=== PATIENT | female | born 1985 | race Caucasian/White ===

== ENCOUNTER 2019-06-09 09:42 | Outpatient (CLI) | payer MEDICAID ==
[2019-06-09 14:28] LABS: APPEARANCE,URINE SLIGHTLY-CLOUDY; BILIRUBIN,URINE NEGATIVE (NEGATIVE); COLOR,URINE YELLOW; GLUCOSE, URINE NEGATIVE (NEGATIVE); KETONES,URINE NEGATIVE (NEGATIVE); LEUKOCYTE ESTERASE,URINE SMALL (NEGATIVE); NITRITE,URINE NEGATIVE (NEGATIVE); PROTEIN,URINE NEGATIVE (NEGATIVE); UROBILINOGEN,URINE NEGATIVE mg/dL (<2.0)
[2019-06-09 14:44] LABS: URINE AMPHETAMINES SCREEN NEGATIVE; URINE BARBITURATES SCREEN NEGATIVE; URINE BENZODIAZEPINES SCREEN NEGATIVE; URINE COCAINE SCREEN NEGATIVE; URINE MARIJUANA (THC) SCREEN NEGATIVE; URINE METHADONE SCREEN NEGATIVE; URINE PHENCYCLIDINE SCREEN NEGATIVE
== END 2019-06-09 12:16 | disposition home or self-care (01) ==
LOC: LC 09:42
PROVIDERS: ATTEND Obstetrics & Gynecology
PROC: 4A1HXCZ Monitoring of Products of Conception, Cardiac Rate, External Approach (ICD-10-PCS; principal; 2019-06-09)
DX: O46.93 Antepartum hemorrhage, unspecified, third trimester (principal); Z3A.38 38 weeks gestation of pregnancy
CPT/HCPCS: 59025; 80307; 81005

== ENCOUNTER 2019-06-17 21:53 | Outpatient (CLI) | payer MEDICAID ==
[2019-06-17 22:35] LABS: APPEARANCE,URINE CLEAR; BILIRUBIN,URINE NEGATIVE (NEGATIVE); COLOR,URINE STRAW; GLUCOSE, URINE NEGATIVE (NEGATIVE); KETONES,URINE NEGATIVE (NEGATIVE); LEUKOCYTE ESTERASE,URINE TRACE (NEGATIVE); NITRITE,URINE NEGATIVE (NEGATIVE); PROTEIN,URINE NEGATIVE (NEGATIVE); URINE SPECIFIC GRAVITY 1.006; UROBILINOGEN,URINE NEGATIVE mg/dL (<2.0)
[2019-06-17 22:56] LABS: URINE AMPHETAMINES SCREEN NEGATIVE; URINE BARBITURATES SCREEN NEGATIVE; URINE BENZODIAZEPINES SCREEN NEGATIVE; URINE COCAINE SCREEN NEGATIVE; URINE MARIJUANA (THC) SCREEN NEGATIVE; URINE METHADONE SCREEN NEGATIVE; URINE PHENCYCLIDINE SCREEN NEGATIVE
--- NOTE | 2019-06-17 23:34 | Non Stress Test Report ---
Non Stress Test Datetime Report Generated by CPN: 06/17/2019 23:33 DEMOGRAPHIC Test Number: 2 EGA NST: 39.1 INDICATION Indication for Study (NST) Other: lc Indication for Study (NST) Other: LC IUP @ 38 VITAL SIGNS Temperature - NST: 97.9 Pulse - NST: 67 RESP - NST: 14 NBPSYS NST: 120 NBPDIA NST: 72 URINE RESULTS Urine Protein, NST: Negative Urine Ketones - NST: Negative Urine Glucose - NST: Negative Urine Blood - NST: Negative MONITORING Monitor Explained: Monitor Explained; Test Explained; Patient Verbalized Understanding Monitor Explained: Monitor Explained; Test Explained; Patient Verbalized Understanding Time on Monitor: 06/17/2019 22:14 Time on Monitor: 06/09/2019 10:42 Time off Monitor: 06/17/2019 23:13 Time off Monitor: 06/09/2019 11:02 NST Duration: 59 NST Duration: 20 NST INTERVENTIONS NST Interventions: None NST Interventions: PO Hydration; Reposition Patient Physician Notified NST: Dr. Rosado Physician Notified NST: PJones,CNM BABY A: [id number] BABY A Movement : Present Movement : Present Contraction Frequency : rare Contraction Frequency : None FHR Baseline : 135 FHR Baseline : 145 Accelerations : 15X15 Accelerations : 15X15 Decelerations : None Decelerations : None Variability : Moderate 6-25bpm Variability : Moderate 6-25bpm NST Review: Meets Criteria for Reactive NST NST Review: Meets Criteria for Reactive NST NST Review and Verified By : SIMONE Siddiqui Results: Reactive NST Results: Reactive NST REPORT Report Trigger: Send Report
== END 2019-06-17 23:34 | disposition home or self-care (01) ==
LOC: LC 21:53
PROVIDERS: ATTEND Obstetrics & Gynecology
PROC: 4A1HXCZ Monitoring of Products of Conception, Cardiac Rate, External Approach (ICD-10-PCS; principal; 2019-06-17)
DX: O47.1 False labor at or after 37 completed weeks of gestation (principal); Z3A.39 39 weeks gestation of pregnancy
CPT/HCPCS: 59025; 80307; 81005

== ENCOUNTER 2019-06-24 21:05 | Outpatient (CLI) | payer MEDICAID ==
[2019-06-24 21:40] LABS: APPEARANCE,URINE CLEAR; BILIRUBIN,URINE NEGATIVE (NEGATIVE); COLOR,URINE YELLOW; GLUCOSE, URINE NEGATIVE (NEGATIVE); KETONES,URINE NEGATIVE (NEGATIVE); LEUKOCYTE ESTERASE,URINE NEGATIVE (NEGATIVE); NITRITE,URINE NEGATIVE (NEGATIVE); PROTEIN,URINE NEGATIVE (NEGATIVE); URINE SPECIFIC GRAVITY 1.011; UROBILINOGEN,URINE NEGATIVE mg/dL (<2.0)
[2019-06-24 21:54] LABS: URINE AMPHETAMINES SCREEN NEGATIVE; URINE BARBITURATES SCREEN NEGATIVE; URINE BENZODIAZEPINES SCREEN NEGATIVE; URINE COCAINE SCREEN NEGATIVE; URINE MARIJUANA (THC) SCREEN NEGATIVE; URINE METHADONE SCREEN NEGATIVE; URINE PHENCYCLIDINE SCREEN NEGATIVE
--- NOTE | 2019-06-25 03:34 | Non Stress Test Report ---
Non Stress Test Datetime Report Generated by CPN: 06/25/2019 03:34 DEMOGRAPHIC Test Number: 3 EGA NST: 40.1 INDICATION Indication for Study (NST) Other: lc URINE RESULTS Urine Protein, NST: Positive MONITORING Monitor Explained: Monitor Explained; Test Explained; Patient Verbalized Understanding Time on Monitor: 06/24/2019 21:28 Time off Monitor: 06/24/2019 23:15 NST Duration: 107 NST INTERVENTIONS NST Interventions: None; Reposition Patient; Vibroacoustic Stim Physician Notified NST: dr vaughn BABY A: [id number] BABY A Movement : Present Contraction Frequency : 2-6 FHR Baseline : 140 Accelerations : 15X15 Variability : Moderate 6-25bpm NST Review: Meets Criteria for Reactive NST NST Review and Verified By : Amanda Wilson RN NST Results: Reactive NST REPORT Report Trigger: Send Report
== END 2019-06-24 23:45 | disposition home or self-care (01) ==
LOC: LC 21:05
PROVIDERS: ATTEND Obstetrics & Gynecology Gynecology
PROC: 4A1HXCZ Monitoring of Products of Conception, Cardiac Rate, External Approach (ICD-10-PCS; principal; 2019-06-24)
DX: O47.1 False labor at or after 37 completed weeks of gestation (principal); O48.0 Post-term pregnancy; Z3A.40 40 weeks gestation of pregnancy
CPT/HCPCS: 59025; 80307; 81005

== ENCOUNTER 2019-06-26 23:22 | Inpatient (IN) | payer MEDICAID ==
[2019-06-26] MEDS ORDERED: RINGERS SOLUTION,LACTATED 1,000 ML IV ONE (23:55)
--- NOTE | 2019-06-26 23:55 | Admission Physical ---
Datetime Report Generated by CPN: 06/26/2019 23:55 CURRENT ADMISSION Chief Complaint: Uterine Contractions Indication for Induction: Not Applicable Admit Impression : Term, Intrauterine Admit Plan: Admit to Unit; Initiate Labor Protocol ALLERGIES Medication Allergies: Yes Medication Allergies: hydrocodone (06/25/2019) Latex: No Latex Allergies Food Allergies: none Environmental Allergies: none OBSTETRICAL HISTORY EDC: 06/23/2019 00:00 : 2 Para: 1 Term: 1 : 0 SAB: 0 IAB: 0 Livin Gestational Diabetes: No Rh Sensitization: No Incompetent Cervix: No HOWARD: No Infertility: Yes ART Treatment: No Uterine Anomaly: No IUGR: No Hx Previous C/S: No Macrosomia: No Hx Loss/Stillborn: No PIH: No Hx : No Placenta Previa/Abruption: No Depression/PP Depression: No PTL/PROM: No Post Hemorrhage: No Current Procedures: Ultrasound; NST Obstetrical History Comments: g1-2004, , female, no complications g2-current SEE RECORDS Alcohol: No Marijuana : No Cocaine: No Other Illicit Drugs: No Cigarettes: Never Smoker. 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 Surgery: No Heart Disease: No Hosp/Surgery: Yes Autoimmune Disorder: No Anesthetic Complications: No Kidney Disease: No Abnormal Pap Smear: Yes Neuro/Epilepsy: No Psychiatric Disorders: No Other Medical Diseases: No Hepatitis/Liver Disease: No Significant Family History: No Varicosities/Phlebitis: No Trauma/Violence : No Thyroid Dysfunction: No Medical History Comments: childbirth x 1, infertility, gallbladder removed INFECTIOUS HISTORY Gonorrhea: No Genital Herpes: No Chlamydia: Yes Tuberculosis: No Syphilis: No Hepatitis: No HIV/AIDS Exposure: No Rash or Viral Illness: No HPV: Yes PHYSICAL EXAM General: Normal HEENT: Normal Neurologic: Normal Thyroid: Normal Heart: Normal Lungs: Normal Breast: Deferred Back: Normal Abdomen: Normal Genitourinary Exam: Normal Extremities: Normal DTRs: Normal Pelvic Type: Adequate Vital Signs: Reviewed VAGINAL EXAM Dilatation: 5 Effacement: 70 Station: 0 MEMBRANES Pooling: Negative Membranes: Intact FETUS A EGA: 40.3 Monitoring: External US FHR- Baseline: 150 Variability: Moderate 6-25bpm Accelerations: 15X15 Decelerations: None FHR Category: Category I Presentation: Vertex Admit Comment: Admit for labor. PLANS FOR LABOR AND DELIVERY Labor and Delivery: Plan; Other, Specify Pain Management: Natural Feeding Preference: Breast Benefit of Breast Feed Discussed: Yes Circumcision: N/A INFORMED CONSENT Signature: with User ID: [email or web address]
[2019-06-27 00:30] LABS: ABSOLUTE BASOPHILS # (AUTO) 0.1 10^3/uL (0.0-0.2); ABSOLUTE EOSINOPHILS # (AUTO) 0.3 10^3/uL (0.0-0.6); ABSOLUTE LYMPHOCYTES (AUTO) 2.2 10^3/uL (0.5-4.7); ABSOLUTE MONOCYTES (AUTO) 0.8 10^3/uL (0.1-1.4); ABSOLUTE NEUT (AUTO) 11.5 10^3/uL (1.7-8.2); BASOPHILS % (AUTO) 0.4 % (0-2); EOSINOPHILS % (AUTO) 2.1 % (0-6); HEMATOCRIT 38.4 % (36.0-47.0); HEMOGLOBIN 13.4 g/dL (12.0-15.5); LYMPHOCYTES % (AUTO) 14.5 % (13-45); MEAN CORPUSCULAR HGB CONC 34.9 g/dL (32.0-36.0); MEAN CORPUSCULAR VOLUME 92 fl (80-97); MONOCYTES % (AUTO) 5.4 % (3-13); PLATELET COUNT 214 10^3/uL (150-450); RED BLOOD COUNT 4.19 10^6/uL (3.72-5.28); RED CELL DISTRIBUTION WIDTH 14.3 % (11.5-14.0); SEGMENTED NEUTROPHILS % (AUTO) 77.6 % (42-78); TOTAL CELLS COUNTED % (AUTO) 100 %; WHITE BLOOD COUNT 14.8 10^3/uL (4.0-10.5)
[2019-06-27] MEDS ORDERED: MORPHINE SULFATE 10 MG/ML INJ IV ONE (00:30)
[2019-06-27 00:33] LABS: APPEARANCE,URINE CLEAR; BILIRUBIN,URINE NEGATIVE (NEGATIVE); COLOR,URINE STRAW; GLUCOSE, URINE NEGATIVE (NEGATIVE); KETONES,URINE NEGATIVE (NEGATIVE); LEUKOCYTE ESTERASE,URINE NEGATIVE (NEGATIVE); NITRITE,URINE NEGATIVE (NEGATIVE); PROTEIN,URINE NEGATIVE (NEGATIVE); URINE SPECIFIC GRAVITY 1.005; UROBILINOGEN,URINE NEGATIVE mg/dL (<2.0)
[2019-06-27] MEDS ORDERED: OXYTOCIN 10 UNIT/ML VIAL ONE (00:34)
[2019-06-27] MEDS ORDERED: MORPHINE SULFATE 10 MG/ML INJ ONE (00:34)
[2019-06-27] MEDS ORDERED: LIDOCAINE 1% INJ-PF (10 MG/ML) 30 ML SDV ONE (00:34)
[2019-06-27] MEDS ORDERED: MISOPROSTOL 0.2 MG TABLET ONE (00:34)
[2019-06-27] MEDS ORDERED: OXYTOCIN/NORMAL SALINE 20 UNIT/1,000 ML RTUINJ ONE (00:35)
[2019-06-27] MEDS: RINGERS SOLUTION,LACTATED 1,000 ML IV PRN ×2 (00:42→06:48)
[2019-06-27 00:52] LABS: URINE AMPHETAMINES SCREEN NEGATIVE; URINE BARBITURATES SCREEN NEGATIVE; URINE BENZODIAZEPINES SCREEN NEGATIVE; URINE COCAINE SCREEN NEGATIVE; URINE MARIJUANA (THC) SCREEN NEGATIVE; URINE METHADONE SCREEN NEGATIVE; URINE PHENCYCLIDINE SCREEN NEGATIVE
[2019-06-27] MEDS ORDERED: EPHEDRINE SULFATE INJ 50 MG/1 ML AMPULE ONE (05:52)
[2019-06-27] MEDS ORDERED: FENTANYL/BUPIVACAINE/NS/PF 300 MCG/150 ML RTUINJ EPI ONE (05:52)
[2019-06-27] MEDS ORDERED: BUPIVACAINE HCL 0.25 % INJ/PF (2.5 MG/1 ML) 30 ML VIAL ONE ×2 (05:53→07:27)
[2019-06-27] MEDS ORDERED: FENTANYL CITRATE INJ/PF 100 MCG/2 ML AMPUL ONE (07:27)
[2019-06-27] MEDS ORDERED: MEASLES,MUMPS&RUBELLA VACC/PF 0.5 ML VIAL SUBCUT PRN (09:04)
[2019-06-27] MEDS ORDERED: GLYCERIN/WITCH HAZEL LEAF 1 EACH MED..WIPE TP PRN (09:04)
[2019-06-27] MEDS ORDERED: ACETAMINOPHEN WITH CODEINE #3 TABLET PO PRN ×2 (09:04)
[2019-06-27] MEDS ORDERED: DIBUCAINE 1% OINTMENT 28 GM TP PRN (09:04)
[2019-06-27] MEDS ORDERED: DIPHENHYDRAMINE HCL 25 MG CAPSULE PO PRN (09:04)
[2019-06-27] MEDS ORDERED: PSEUDOEPHEDRINE HCL 30 MG TABLET PO PRN (09:04)
[2019-06-27] MEDS ORDERED: MAGNESIUM HYDROXIDE SUSP 30 ML UDCUP PO PRN (09:04)
[2019-06-27] MEDS ORDERED: PROMETHAZINE HCL 25 MG SUPP.RECT PR PRN (09:04)
[2019-06-27] MEDS ORDERED: ZOLPIDEM TARTRATE 5 MG TABLET PO PRN (09:04)
[2019-06-27] MEDS ORDERED: ACETAMINOPHEN 650 MG SUPP.RECT PR PRN (09:04)
[2019-06-27] MEDS ORDERED: BENZOCAINE/MENTHOL AEROSOL SPRAY 56 ML TOP PRN (09:04)
[2019-06-27] MEDS ORDERED: PROMETHAZINE HCL INJ 25 MG/1 ML VIAL IV PRN (09:04)
[2019-06-27] MEDS ORDERED: OXYTOCIN/NORMAL SALINE 20 UNIT/1,000 ML RTUINJ IV PRN (09:04)
[2019-06-27] MEDS ORDERED: NA PHOS,M-B/NA PHOS,DI-BA (ADULT) 133 ML ENEMA PR PRN (09:04)
[2019-06-27] MEDS ORDERED: DIPH/PERTUSS(ACELL)/TETANUS VAC/PF 0.5 ML SYR (>=10YO) IM PRN (09:04)
[2019-06-27] MEDS ORDERED: PROMETHAZINE HCL 25 MG TABLET PO PRN (09:04)
[2019-06-27] MEDS ORDERED: IBUPROFEN 800 MG TABLET ONE (09:58)
[2019-06-27] MEDS ORDERED: PRENATAL VITAMIN W DHA CAPSULE PO ONE (10:25)
[2019-06-27] MEDS ORDERED: SENNOSIDES/DOCUSATE 8.6-50 MG 1 EACH TABLET ONE ×2 (10:25→10:26)
[2019-06-27] MEDS ORDERED: FAMOTIDINE 20 MG TABLET ONE (10:26)
[2019-06-27] MEDS ORDERED: FERROUS SULFATE 325 MG TABLET PO ONE (10:26)
[2019-06-27] MEDS ORDERED: DOCUSATE SODIUM 100 MG CAPSULE ONE (10:26)
[2019-06-27] MEDS: FAMOTIDINE 20 MG TABLET PO SCH ×2 (10:28→22:44)
[2019-06-27] MEDS: SENNOSIDES/DOCUSATE 8.6-50 MG 1 EACH TABLET PO SCH (10:28)
[2019-06-27] MEDS: FERROUS SULFATE 325 MG TABLET PO SCH ×2 (10:28→17:22)
[2019-06-27] MEDS: PRENATAL VITAMIN W DHA CAPSULE PO SCH (10:29)
[2019-06-27] MEDS: DOCUSATE SODIUM 100 MG CAPSULE PO SCH ×2 (10:29→17:22)
--- NOTE | 2019-06-27 11:30 | Delivery Summary ---
Del Sum A-C Datetime Report Generated by CPN: 06/27/2019 11:30 DELIVERY PERSONNEL DELIVERY PERSONNEL: [id number] Delivery Doctor:: Kiersten Cooper CNM Nurse Gas Controller Certified:: Kiersten Cooper CNM Labor and Delivery Nurse:: Jeannie Valdez RNnuclear physics teacher Nurse:: Ashly Mcallister RN Facility Planner/BEER BREWER: Monique Peña, POT FEEDER MATERNAL INFORMATION Delivery Anesthesia: Epidural Medications After Delivery: Pitocin Bolus-Please Comment Meds After Delivery Comment: Pitocin 20 units in 1000 ml nss open for bolus Delivery QBL: 400 Maternal Complications: None Provider Comments: NURSERY RN CALLED DURING DELIVERY OF HEAD FOR LIGHT MECONIUM NOTED. GARY VIABLE FEMALE WITH SPONTANEOUS CRY. CORD DOUBLE CLAMPED AND CUT. SPONTANEOUS INTACT PLACENTA WITH 3VC. NO LACERATIONS. MOTHER AND INFANT STABLE IN L_D#6. LABOR SUMMARY EDC: 06/23/2019 00:00 No. Babies in Womb: 1 Attempted: No Labor Anesthesia: Intrathecal LABOR INFORMATION Reason for Induction: Not Applicable Onset of Labor: 06/27/2019 00:31 Complete Dilatation: 06/27/2019 08:10 Oxytocin: N/A Group B Beta Strep: Negative Steroids Given: None Reason Steroids Not Administered: Not Applicable MEMBRANES Membranes Rupture Method: Artificial Rupture of Membranes: 06/27/2019 00:31 Length of Rupture (hr): 7.87 Amniotic Fluid Color: Clear Amniotic Fluid Amount: Moderate Amniotic Fluid Odor: Normal STAGES OF LABOR Stage 1 hr: 7 Stage 1 min: 39 Stage 2 hr: 0 Stage 2 min: 13 Stage 3 hr: 0 Stage 3 min: 5 Total Time in Labor hr: 7 Total Time in Labor min: 57 VAGINAL DELIVERY Episiotomy: None Laceration #1: None Laceration Extension #1: N/A Laceration Repair: Not Applicable Sponge Count Correct: N/A Sharps Count Correct: N/A CSECTION DELIVERY Primary Indication: N/A Secondary Indication: N/A CSection Incidence: N/A Labor: N/A Elective: N/A CSection Incision: N/A BABY A INFORMATION Infant Delivery Date/Time: 06/27/2019 08:23 Method of Delivery: Vaginal Nurse Controlled Delivery: No Born in Route : No : N/A Forceps: N/A Vacuum Extraction: N/A Shoulder Dystocia : No PRESENTATION/POSITION BABY A Presentation: Cephalic Cephalic Presentation: Vertex Vertex Position: Right Occipital Anterior Breech Presentation: N/A PLACENTA INFORMATION BABY A Placenta Delivery Time : 06/27/2019 08:28 Placenta Method of Delivery: Spontaneous Placenta Status: Delivered SCORES BABY A Heart Rate 1 min: >100 bpm Resp Effort 1 min: Good Cry Reflex Irritability 1 min: Cough or Sneeze or Pulls Away Muscle Tone 1 min: Active Motion Color 1 min: Blue/Pale Resuscitation Effort 1 min: Tactile Stimulation SCORE 1 MIN: 8 Heart Rate 5 min: >100 bpm Resp Effort 5 min: Good Cry Reflex Irritability 5 min: Cough or Sneeze or Pulls Away Muscle Tone 5 min: Active Motion Color 5 min: Body Fingal, Extremities Blue Resuscitation Effort 5 min: N/A SCORE 5 MIN: 9 Resuscitation Effort 10 min: N/A INFANT INFORMATION BABY A Gestational Age at Delivery: 40.4 Gestational Status: Full Term- 39- 40.6 Weeks Outcome : Liveborn Condition : Stable Infant Sex: Female IDENTIFICATION BABY A Verification Date/Time: 06/27/2019 08:36 ID Band Number: [id number] Mother's Name Verified: Yes Infant RN Verifying Infant: Purnima [place] [facility] Additional Verifying Personnel: Jeannie Valdez RN CORD INFORMATION BABY A No. Cord Vessels: 3 Nuchal Cord : N/A Cord Blood Taken: Yes-For Storage (Mom's Blood type +) Suction: None ASSESSMENT BABY A Infant Complications: Meconium Skin to Skin: Yes BABY B INFORMATION : N/A SIGNATURES Assignment: Peyton Rosado MD Signature: with User ID: [email or web address] : with User ID: [email or web address] : I was personally available for consultation and serving as supervising physician for the MLP.
[2019-06-27] MEDS: IBUPROFEN 800 MG TABLET PO SCH ×2 (13:43→22:44)
[2019-06-27] MEDS ORDERED: INFLUENZA QUAD (6MOS+) 2019-20 VAC 0.5 ML SYR IM ONE (14:55)
[2019-06-28] MEDS: IBUPROFEN 800 MG TABLET PO SCH ×3 (05:22→22:07)
[2019-06-28 07:21] LABS: HEMATOCRIT 33.1 % (36.0-47.0); HEMOGLOBIN 11.4 g/dL (12.0-15.5); MEAN CORPUSCULAR HEMOGLOBIN 31.9 pg (27.0-33.4); MEAN CORPUSCULAR HGB CONC 34.5 g/dL (32.0-36.0); MEAN CORPUSCULAR VOLUME 92 fl (80-97); PLATELET COUNT 195 10^3/uL (150-450); RED BLOOD COUNT 3.59 10^6/uL (3.72-5.28); RED CELL DISTRIBUTION WIDTH 14.4 % (11.5-14.0); WHITE BLOOD COUNT 15.6 10^3/uL (4.0-10.5)
[2019-06-28] MEDS: FERROUS SULFATE 325 MG TABLET PO SCH ×2 (10:12→17:16)
[2019-06-28] MEDS: FAMOTIDINE 20 MG TABLET PO SCH ×2 (10:13→22:09)
[2019-06-28] MEDS: PRENATAL VITAMIN W DHA CAPSULE PO SCH (10:13)
[2019-06-28] MEDS: DOCUSATE SODIUM 100 MG CAPSULE PO SCH ×2 (10:13→17:16)
[2019-06-28] MEDS: SENNOSIDES/DOCUSATE 8.6-50 MG 1 EACH TABLET PO SCH (10:13)
--- NOTE | 2019-06-28 10:47 | PDOC PROGRESS REPORT ---
Subjective-OB Progress Note for:: 06/28/19 - PP Day #1, doing well, A+, Rubella Immune, , UOB voiding Physical Exam (OB) Vital Signs: Temp Pulse Resp BP Pulse Ox 97.5 F 64 22 H 119/84 98 06/28/19 08:00 06/28/19 08:00 06/28/19 08:00 06/28/19 08:00 06/28/19 08:00 Intake & Output 06/27/19 06/28/19 06/29/19 06:59 06:59 06:59 Intake Total 763 1240 Balance 763 1240 Weight 109 kg - General General Appearance: Appears well, Alert In distress: None - Lochia Lochia Amount: Small 10-25 ml Lochia Color: Rubra/Red - Abdomen Description: Soft Hernia Present: No Fundal Description: Firm, Midline Fundal Height: u/u - u/2 - Respiratory Respiratory Status: No respiratory distress - Abdominal Distension: No distension Tenderness: Nontender - Genitourinary Genitourinary Note: voiding - Extremities Upper extremity: Normal inspection Lower extremities: Normal inspection - Neurological Cognition: Normal Orientation: AAOx4 - Psychological Associated symptoms: Normal affect, Normal mood - Skin Skin Temperature: Warm Skin Moisture: Dry Objective-Diagnostic Laboratory: 06/28/19 06:49 06/28/19 06:49 WBC 15.6 H RBC 3.59 L Hgb 11.4 L Hct 33.1 L MCV 92 MCH 31.9 MCHC 34.5 RDW 14.4 H Plt Count 195 Assessment and Plan(PN) Plan:: Routine PP orders, ambulation encouraged - Time Spent with Patient Time with patient: Less than 15 minutes Medications reviewed and adjusted accordingly: Yes - Disposition Anticipated Discharge: Home Within: within 24 hours
[2019-06-29] MEDS: IBUPROFEN 800 MG TABLET PO SCH ×2 (06:45→13:37)
[2019-06-29] MEDS: FAMOTIDINE 20 MG TABLET PO SCH (09:56)
[2019-06-29] MEDS: PRENATAL VITAMIN W DHA CAPSULE PO SCH (09:56)
[2019-06-29] MEDS: SENNOSIDES/DOCUSATE 8.6-50 MG 1 EACH TABLET PO SCH (09:56)
[2019-06-29] MEDS: DOCUSATE SODIUM 100 MG CAPSULE PO SCH (09:56)
[2019-06-29] MEDS: FERROUS SULFATE 325 MG TABLET PO SCH (09:56)
--- NOTE | 2019-06-29 14:34 | PDOC DISCHARGE SUMMARY ---
Impression - Admit/DC Date/PCP Admission Date/Primary Care Provider: 06/27/19 00:00 JACKELYN FINK MD Discharge Date: 06/29/19 - Discharge Diagnosis (1) Delivery normal Is this a current diagnosis for this admission?: Yes - Additional Information Resuscitation Status: Full Code Discharge Diet: As Tolerated, Regular Discharge Activity: Activity As Tolerated, Balance Activity w/Rest, No Lifting Over 10 Pounds, Pelvic Rest, No tub bath Referrals: JACKELYN FINK MD [Primary Care Provider] - Prescriptions: Ibuprofen [Motrin 800 mg Tablet] 800 mg PO Q8HP PRN #20 tablet PRN Reason: Abdominal Cramping Home Medications: Vitamin [-U Multiple Vitamin Capsule] 1 tab PO DAILY 06/17/19 Ibuprofen [Motrin 800 mg Tablet] 800 mg PO Q8HP PRN #20 tablet 06/29/19 Results Laboratory Results: WBC 15.6 10^3/uL (4.0-10.5) H 06/28/19 06:49 RBC 3.59 10^6/uL (3.72-5.28) L 06/28/19 06:49 Hgb 11.4 g/dL (12.0-15.5) L 06/28/19 06:49 Hct 33.1 % (36.0-47.0) L 06/28/19 06:49 MCV 92 fl (80-97) 06/28/19 06:49 MCH 31.9 pg (27.0-33.4) 06/28/19 06:49 MCHC 34.5 g/dL (32.0-36.0) 06/28/19 06:49 RDW 14.4 % (11.5-14.0) H 06/28/19 06:49 Plt Count 195 10^3/uL (150-450) 06/28/19 06:49 Lymph % (Auto) 14.5 % (13-45) 06/27/19 00:10 [place] % (Auto) 5.4 % (3-13) 06/27/19 00:10 Eos % (Auto) 2.1 % (0-6) 06/27/19 00:10 Baso % (Auto) 0.4 % (0-2) 06/27/19 00:10 Absolute Neuts (auto) 11.5 10^3/uL (1.7-8.2) H 06/27/19 00:10 Absolute Lymphs (auto) 2.2 10^3/uL (0.5-4.7) 06/27/19 00:10 Absolute Monos (auto) 0.8 10^3/uL (0.1-1.4) 06/27/19 00:10 Absolute Eos (auto) 0.3 10^3/uL (0.0-0.6) 06/27/19 00:10 Absolute Basos (auto) 0.1 10^3/uL (0.0-0.2) 06/27/19 00:10 Seg Neutrophils % 77.6 % (42-78) 06/27/19 00:10 Urine Color STRAW 06/26/19 23:25 Urine Appearance CLEAR 06/26/19 23:25 Urine pH 6.0 (5.0-9.0) 06/26/19 23:25 Ur Specific [place] 1.005 06/26/19 23:25 Urine Protein NEGATIVE mg/dL (NEGATIVE) 06/26/19 23:25 Urine Glucose (UA) NEGATIVE mg/dL (NEGATIVE) 06/26/19 23:25 Urine Ketones NEGATIVE mg/dL (NEGATIVE) 06/26/19 23:25 Urine Blood SMALL (NEGATIVE) H 06/26/19 23:25 Urine Nitrite NEGATIVE (NEGATIVE) 06/26/19 23:25 Urine Bilirubin NEGATIVE (NEGATIVE) 06/26/19 23:25 Urine Urobilinogen NEGATIVE mg/dL (<2.0) 06/26/19 23:25 Ur Leukocyte Esterase NEGATIVE (NEGATIVE) 06/26/19 23:25 Urine Ascorbic Acid NEGATIVE (NEGATIVE) 06/26/19 23:25 Urine Opiates Screen NEGATIVE 06/26/19 23:25 Urine Methadone Screen NEGATIVE 06/26/19 23:25 Ur Barbiturates Screen NEGATIVE 06/26/19 23:25 Ur Phencyclidine Scrn NEGATIVE 06/26/19 23:25 Ur Amphetamines Screen NEGATIVE 06/26/19 23:25 U Benzodiazepines Scrn NEGATIVE 06/26/19 23:25 Urine Cocaine Screen NEGATIVE 06/26/19 23:25 U Marijuana (THC) Screen NEGATIVE 06/26/19 23:25 RPR NONREACTIVE (NONREACTIVE) 06/27/19 00:10 Blood Type A POSITIVE 06/27/19 00:10 Antibody Screen NEGATIVE 06/27/19 00:10
[2019-06-29 15:05] VITALS: BP 119/84
== END 2019-06-29 16:57 | disposition home or self-care (01) | DRG 807 ==
LOC: LC 23:22 → LR 06-27 → 2S 06-27 10:55
PROVIDERS: ADMIT Obstetrics & Gynecology; ATTEND Obstetrics & Gynecology
PROC: 10E0XZZ Delivery of Products of Conception, External Approach (ICD-10-PCS; principal; 2019-06-27)
PROC: 10907ZC Drainage of Amniotic Fluid, Therapeutic from Products of Conception, Via Natural or Artificial Opening (ICD-10-PCS; 2019-06-27)
PROC: 3E02340 Introduction of Influenza Vaccine into Muscle, Percutaneous Approach (ICD-10-PCS; 2019-06-29)
PROC: 3E0234Z Introduction of Serum, Toxoid and Vaccine into Muscle, Percutaneous Approach (ICD-10-PCS; 2019-06-29)
DX: O77.0 Labor and delivery complicated by meconium in amniotic fluid (principal); Z37.0 Single live birth; Z3A.40 40 weeks gestation of pregnancy; Z23 Encounter for immunization
CPT/HCPCS: 36415; 80307; 81005; 85025; 85027; 86592; 86850; 86900; 86901; 90686; 90715; J2270; J2590; J3010; J3490